=== PATIENT | female | born 1960 | race Caucasian/White ===

== ENCOUNTER → 2017-12-10 | Outpatient (CLI) | payer MEDICARE | LOC: M.LAB 01:40 | DX: Z01.812 Encounter for preprocedural laboratory examination (principal) ==

== ENCOUNTER → 2018-05-04 | Outpatient (CLI) | payer MEDICARE | LOC: M.ULTRA 16:30 | DX: M71.21 Synovial cyst of popliteal space [Baker], right knee (principal); M25.48 Effusion, other site; R60.9 Edema, unspecified ==

== ENCOUNTER 2019-02-04 13:30 | Emergency (ER) | payer MEDICARE ==
[~2019-02-04] VITALS: Ht 175.3 cm; Wt 80.7 kg
[2019-02-04] MEDS ORDERED: PROTONIX40 M1 PO (13:47)
[2019-02-04] MEDS ORDERED: HYDROCODONE-ACE15 ML PO (13:47)
[2019-02-04] MEDS ORDERED: HYDROCHLOROTHIA25 M2 PO (13:47)
[2019-02-04] MEDS ORDERED: NEURONTIN600 MG PO (13:47)
[2019-02-04] MEDS ORDERED: TOPAMAX50 MG PO (13:48)
[2019-02-04] MEDS ORDERED: DIAZEPAM 10 MG10 M1 PO (13:48)
[2019-02-04] MEDS ORDERED: LIPITOR40 MG PO (13:48)
[2019-02-04] MEDS ORDERED: ZYRTEC10 M5 PO (13:49)
[2019-02-04 14:24] LABS: ABSOLUTE EOSINOPHILS 0.1 thou/uL (0.0-0.7); ABSOLUTE LYMPHOCYTES 1.1 thou/uL (0.8-5.3); ABSOLUTE MONOCYTES 0.4 thou/uL (0.0-1.2); ABSOLUTE NEUTROPHILS 2.6 thou/uL (1.6-8.1); BASOPHILS 0.9 %; EOSINOPHILS 2.3 %; HEMATOCRIT 37.2 % (37.0-47.0); HEMOGLOBIN 12.5 gm/dL (12.0-15.0); LYMPHOCYTES 26.7 %; MCH 28.9 pg (26.0-34.0); MCHC 33.6 g/dL (28.0-37.0); MCV 86.1 fL (80.0-100.0); MONOCYTES 9.2 %; MPV 10.4 fl. (7.2-11.1); NUCLEATED RBCS 0 /100WBC; PLATELET COUNT* 138 thou/uL (150-400); POLYS 60.9 %; RBC 4.33 mil/uL (4.20-5.00); RDW-CV 15.1 % (10.5-14.5); WBC 4.3 thou/uL (4.0-11.0)
[2019-02-04 14:31] LABS: ANION GAP 9 mmol/L (7-16); BUN 10 mg/dL (7-18); CALCIUM 8.7 mg/dL (8.5-10.1); CHLORIDE 104 mmol/L (98-107); CO2 26 mmol/L (21-32); GLUCOSE 103 mg/dL (70-99); POTASSIUM 3.1 mmol/L (3.5-5.1); SODIUM 139 mmol/L (136-145)
[2019-02-04 14:43] LABS: ALBUMIN 3.4 g/dL (3.4-5.0); ALKALINE PHOSPHATASE 63 U/L (46-116); SGOT 17 U/L (15-37); SGPT 24 U/L (30-65); TOTAL BILIRUBIN 0.3 mg/dL (<0.1-1.0); TOTAL PROTEIN 6.7 g/dL (6.4-8.2); TROPONIN-I LEVEL <0.06 ng/mL (<0.06)
[2019-02-04 15:04] LABS: INFLUENZA A ANTIGEN Negative (Negative); INFLUENZA B ANTIGEN Negative (Negative)
[2019-02-04] MEDS ORDERED: MEDROLDOSEPACK PO (15:05)
[2019-02-04] MEDS ORDERED: TESSALON PERLE100 MG PO (15:05)
[2019-02-04] MEDS ORDERED: VENTOLIN HFA 1818 GM INH (15:05)
[2019-02-04] MEDS ORDERED: DOXYCYCLINE 10100 MG PO (15:05)
[2019-02-04] MEDS ORDERED: PROMETH-CODEIN 65 ML PO (15:18)
[2019-02-04 15:41] VITALS: BP 125/79
== END 2019-02-04 15:44 | disposition home or self-care (01) ==
LOC: M.ERS 13:30
PROVIDERS: Nurse Practitioner Family
DX: J20.9 Acute bronchitis, unspecified (principal); G43.909 Migraine, unspecified, not intractable, without status migrainosus; K21.9 Gastro-esophageal reflux disease without esophagitis; E78.00 Pure hypercholesterolemia, unspecified; Z88.1 Allergy status to other antibiotic agents; Z88.0 Allergy status to penicillin; Z88.8 Allergy status to other drugs, medicaments and biological substances

== ENCOUNTER → 2019-04-12 | Outpatient (CLI) | payer MEDICARE ==
[~2019-04-12] MED LIST: DIAZEPAM 10 MG10 M1 PO; DOXYCYCLINE 10100 MG PO; HYDROCHLOROTHIA25 M2 PO; HYDROCODONE-ACE15 ML PO; LIPITOR40 MG PO; MEDROLDOSEPACK PO; NEURONTIN600 MG PO; PROMETH-CODEIN 65 ML PO; PROTONIX40 M1 PO; TESSALON PERLE100 MG PO; TOPAMAX50 MG PO; VENTOLIN HFA 1818 GM INH; ZYRTEC10 M5 PO
== END ==
LOC: M.CT 09:35
PROVIDERS: Family Medicine
DX: M43.13 Spondylolisthesis, cervicothoracic region (principal); M12.88 Other specific arthropathies, not elsewhere classified, other specified site; M43.22 Fusion of spine, cervical region; M50.321 Other cervical disc degeneration at C4-C5 level

== ENCOUNTER 2021-07-01 15:28 | Emergency (ER) | payer MEDICARE ==
[~2021-07-01] VITALS: Ht 175.3 cm; Wt 77.1 kg
[2021-07-01] MEDS ORDERED: CELEXA 20 MG TA20 MG PO (15:53)
[2021-07-01] MEDS ORDERED: PREDNISONE 20 M20 M1 PO (15:59)
[2021-07-01 16:07] VITALS: BP 119/82
== END 2021-07-01 16:07 | disposition home or self-care (01) ==
LOC: M.ERS 15:28
DX: T78.49XA Other allergy, initial encounter (principal); E78.00 Pure hypercholesterolemia, unspecified; G43.909 Migraine, unspecified, not intractable, without status migrainosus; K21.9 Gastro-esophageal reflux disease without esophagitis; F17.210 Nicotine dependence, cigarettes, uncomplicated; Z88.1 Allergy status to other antibiotic agents; Z88.8 Allergy status to other drugs, medicaments and biological substances; Z88.0 Allergy status to penicillin; Z91.013 Allergy to seafood; K58.9 Irritable bowel syndrome, unspecified; X58.XXXA Exposure to other specified factors, initial encounter